=== PATIENT | male | born 1965 | race Caucasian/White ===

== ENCOUNTER 2024-11-06 10:26 | Emergency (ER) | payer OTHER, SELFPAY ==
[2024-11-06 10:28] VITALS: BP 163/92
[2024-11-06 10:47] LABS: Hematocrit 40.6 % (39.0-52.0); Hemoglobin 13.8 g/dL (13.0-18.0); Mean Corp Hgb Conc. 34.0 g/dL (33.0-37.0); Mean Corpuscular Volume 91.4 fL (80.0-94.0); Nucleated Red Blood Cells % 0 % (-); Platelet Count 360 10^3/uL (130-400); Red Cell Dist. Width 11.9 % (11.5-14.5)
[2024-11-06 11:07] LABS: Albumin 4.3 g/dl (3.5-5.0); Carbon Dioxide 29 mmol/L (22-30); Total Protein 7.0 g/dl (6.3-8.2); eGFR > 60.00
[2024-11-06 11:17] LABS: ALT (SGPT) 92 U/L (0-50); AST (SGOT) 42 U/L (17-59); Alkaline Phosphatase 196 U/L (38-126); Blood Urea Nitrogen 11 mg/dl (9-20); Calcium 9.6 mg/dl (8.4-10.2); Chloride 102 mmol/L (98-107); Glucose 114 mg/dl (70-99); Lipase 168 U/L (23-300); Potassium 4.3 mmol/L (3.5-5.1); Sodium 136 mmol/L (135-145)
[2024-11-06 12:35] VITALS: BP 137/83
--- NOTE | 2024-11-06 13:02 | ED.GENMED ---
History of Present Illness
<YEHUDA Logan - Last Filed: 11/06/24 14:52>
General
Chief Complaint: Abdominal Pain
Source: patient
Exam Limitations: none
Time Seen by Provider: 11/06/24 12:33
Nursing documentation reviewed up to this point in time: agreed with
History of Present Illness
History of Present Illness:
Patient is a 51-year-old male who presents to the ER for left-sided abdominal pain. Patient started with symptoms 6 days ago. It felt similar to her previous diverticulitis episodes. He was started on Augmentin Saturday evening and has been taking
twice a day without relief. He denies any worsening of pain but reports pain is persistent. He denies any nausea vomiting fever chills. He was sent by his primary care physician today. Patient is status post surgery of right tibial plateau
fracture October 21. He is on Lovenox. He has no complaints related to his surgery. Denies any new pain
Past History
<YEHUDA Logan - Last Filed: 11/06/24 14:52>
Past History
ED Past Medical History: Other (diverticulitis)
ED Past Surgical History: Appendectomy
Social History
Personal:
Living: with family
Phy Exam
<YEHUDA Logan - Last Filed: 11/06/24 14:52>
General Physical Exam
General Presentation: no apparent distress
General age: appears stated age
General Skin: warm and dry
General Habitus: normal
General Mental: alert
General Hydration: appears well hydrated
Cardiovascular Exam
Cardiovascular Exam: regular rate/rhythm, no murmur and normal peripheral pulses
Gastrointestinal Exam
Gastrointestinal Exam: soft and other (tender left lateral abd)
Neurological Exam
Neurological Exam: alert and oriented x3
Musculoskeletal Exam
Musculoskeletal Exam: other (Right leg status post surgery in brace)
Skin Exam
Skin Exam: normal color and warm/dry
Psychiatric Exam
Psychiatric Exam: normal mood/affect
Course
<YEHUDA Logan - Last Filed: 11/06/24 14:52>
Orders/Labs/Results
Orders:
Orders
11/06/24 10:35
Complete Blood Count/With Diff Urgent
Comprehensive Metabolic Panel Urgent
Lipase Urgent
11/06/24 13:01
CT Abd/pelvis W Iv Cont Urgent
Comment:
Reason For Exam: left sided abd pain
11/06/24 13:02
0.9% Sodium Chloride 1000 ml [Nss] 1,000 ml IV BOLUS
11/06/24 14:36
Ciprofloxacin HCl [Cipro] 500 mg PO NOW STA
11/06/24 14:38
MetroNIDAZOLE [Flagyl] 500 mg PO NOW STA
Abnormal Lab Results
11/06/24
10:35
RBC 4.44 L 10^6/uL
(4.70-6.10)
MCH 31.1 H pg
(27.0-31.0)
Abs Immat Gran (auto) 0.1 H 10^3/uL
(0-0.05)
Absolute Neuts (auto) 6.6 H 10^3/uL
(1.4-6.5)
Absolute Monos (auto) 0.8 H 10^3/uL
(0.1-0.6)
Lymphocytes % 19.2 L %
(20.5-51.1)
Glucose 114 H mg/dl
(70-99)
ALT 92 H U/L
(0-50)
Alkaline Phosphatase 196 H U/L
(38-126)
11/06/24 10:35
11/06/24 10:35
Vital Signs
Initial and Last Documented VS:
Initial Vital Signs
Temp Pulse Resp BP Pulse Ox
98.8 F 87 16 163/92 97
11/06/24 10:28 11/06/24 10:28 11/06/24 10:28 11/06/24 10:28 11/06/24 10:28
Last Documented Vital Signs
Temp Pulse Resp BP Pulse Ox
98.8 F 81 16 140/81 98
11/06/24 10:28 11/06/24 14:45 11/06/24 14:45 11/06/24 14:45 11/06/24 14:45
Incident Handler consulted with Physician
Incident Handler consulted with physician?: Yes
Name of Physician Consulted: [facility]
[place];Jorge Alberto Ta, DO - Last Filed: 11/06/24 15:14>
Orders/Labs/Results
Orders:
Orders
11/06/24 10:35
Complete Blood Count/With Diff Urgent
Comprehensive Metabolic Panel Urgent
Lipase Urgent
11/06/24 13:01
CT Abd/pelvis W Iv Cont Urgent
Comment:
Reason For Exam: left sided abd pain
11/06/24 13:02
0.9% Sodium Chloride 1000 ml [Nss] 1,000 ml IV BOLUS
11/06/24 14:36
Ciprofloxacin HCl [Cipro] 500 mg PO NOW STA
11/06/24 14:38
MetroNIDAZOLE [Flagyl] 500 mg PO NOW STA
Abnormal Lab Results
11/06/24
10:35
RBC 4.44 L 10^6/uL
(4.70-6.10)
MCH 31.1 H pg
(27.0-31.0)
Abs Immat Gran (auto) 0.1 H 10^3/uL
(0-0.05)
Absolute Neuts (auto) 6.6 H 10^3/uL
(1.4-6.5)
Absolute Monos (auto) 0.8 H 10^3/uL
(0.1-0.6)
Lymphocytes % 19.2 L %
(20.5-51.1)
Glucose 114 H mg/dl
(70-99)
ALT 92 H U/L
(0-50)
Alkaline Phosphatase 196 H U/L
(38-126)
11/06/24 10:35
11/06/24 10:35
Vital Signs
Initial and Last Documented VS:
Initial Vital Signs
Temp Pulse Resp BP Pulse Ox
98.8 F 87 16 163/92 97
11/06/24 10:28 11/06/24 10:28 11/06/24 10:28 11/06/24 10:28 11/06/24 10:28
Last Documented Vital Signs
Temp Pulse Resp BP Pulse Ox
98.8 F 81 16 140/81 98
11/06/24 10:28 11/06/24 14:45 11/06/24 14:45 11/06/24 14:45 11/06/24 14:45
<YEHUDA Logan - Last Filed: 11/06/24 14:52>
MDM/Problems Addressed
Differential Diagnosis Includes:
Not limited to diverticulitis, abscess constipation obstruction
MDM/Problems Addressed:
Patient is a 59-year-old male who has been on Augmentin since Saturday for diverticulitis however presents with persistent pain. He presents awake alert no acute distress no fevers or vomiting. He is nontoxic-appearing his white count is normal at
9.4. CAT scan does show diverticulitis involving the descending colon and sigmoid colon no rupture. Case discussed with ED physician since patient is very well-appearing will have patient stop Augmentin and switch to Cipro/ Flagyl with very close
outpatient follow-up with family doctor. Strict return precautions given., Patient, agreeable with this plan of care.
Chronic conditions affecting care:
recent tibial plateau surg , diverticulitis in the past
<YEHUDA Logan - Last Filed: 11/06/24 14:52>
*Radiology
Radiology exam reviewed: radiology read reviewed
*Pulse Oximetry
SaO2: 95
Oxygen Mode of Delivery: Room air
Patient hypoxic: no
*Critical Care Note
Total Time (30-74mins, 75-104mins- exclusive of procedures): Not Applicable
ED Attending Note
<YEHUDA Logan - Last Filed: 11/06/24 14:52>
-
Portions of this chart may have been created with voice recognition software.� Occasional wrong word or��sound alike� substitutions may have occurred due to the inherent limitations of voice recognition software.
<Jorge Alberto Ta DO - Last Filed: 11/06/24 15:14>
ED Attending Note
Patient seen and examined by attending physician: Yes
I performed the substantive portion of visit, reviewed & personally made and approve the management plan that is documented in note by myself or MAGUE.: Yes
ED Attending Note:
I agree with Crissy's note
Patient presents with left-sided abdominal pain. Patient was diagnosed with diverticulitis by a primary care provider and started on Augmentin. He has not had any improvement and in fact the pain seems somewhat worse. No fever or chills. No
vomiting.
Abdominal exam: Tenderness in left lower quadrant but no rebound. Nonsurgical abdomen.
CT shows diverticulitis. No abscess. No free air to suggest [place]. Given that the patient appears stable will switch oral antibiotics to Cipro and Flagyl. Patient understands she should return if no better in 72 hours or if he feels like things
are getting worse, develops a fever etc.
Discharge Plan
Departure
Patient Disposition: Home (Routine Discharge)
Date of Disposition: 11/06/24
Time of Disposition: 14:48
Patient with high blood pressure during this ER visit?: Yes
Covid-19: Not Applicable
Discharge Problem:
Diverticulitis
Instructions: Diverticulitis (DC)
Prescriptions:
New
ciprofloxacin HCl [Cipro] 500 mg tablet
500 mg PO BID Qty: 20 0RF
metronidazole 500 mg tablet
500 mg PO TID Qty: 30 0RF
No Action
ibuprofen [Advil] 200 MG tablet
600 mg PO DAILY
amoxicillin-pot clavulanate 1 TABLET tablet
1 tab PO Q12 Qty: 14 0RF
Referrals:
Lauro Morataya DO [Family Provider, Family Practice]
Activity Restrictions/Additional Instructions:
As discussed stop Augmentin start Cipro and Flagyl. You are given the first doses here in the ER prescription was sent to your pharmacy. Please follow-up closely with your family doctor in the next several days and return if any worsening of
symptoms including if increased abdominal pain nausea vomiting fever chills.
Interventions
Interventions:
*Risk Screen - Suicide Last Done: 11/06/24 12:35
*General Assessment Last Done: 11/06/24 12:35
*Neglect/Abuse Screening Last Done: 11/06/24 12:35
*ED- Fall Risk Assessment Last Done: 11/06/24 12:35
*ED COVID-19 Vaccine History Last Done: 11/06/24 12:35
*Nursing Disposition Last Done: 11/06/24 14:59
FA-Rjfegk-Doectfxyxt Assessment Last Done: 11/06/24 12:35
Discharge Date and Time
Discharge Date/Time: 11/06/24 15:00
Print Language: SINHALA
[2024-11-06] MEDS: NSS 1000 IV (13:08)
[2024-11-06] MEDS: FLAGYL 500 MG PO (14:43)
[2024-11-06] MEDS: CIPRO 500 MG PO (14:43)
[2024-11-06 14:45] VITALS: BP 140/81
== END 2024-11-06 15:00 | disposition home or self-care (01) ==
LOC: EMR 10:26
PROVIDERS: Emergency Medicine; EMERGENCY PHYSICIAN Emergency Medicine; FAMILY PHYSICIAN Family Medicine
DX: K57.32 Diverticulitis of large intestine without perforation or abscess without bleeding (principal); Z90.49 Acquired absence of other specified parts of digestive tract; Z98.890 Other specified postprocedural states; Z79.01 Long term (current) use of anticoagulants
CPT/HCPCS: 96360; 99284; 74177; 80053; 83690; 85025; Q9967